=== PATIENT | female | born 1985 | race Caucasian/White ===

== ENCOUNTER 2016-06-05 08:40 | Emergency (ER) | payer OTHER ==
--- NOTE | 2016-06-05 09:22 | EDPHY ---
HPI/HX/ROS/PE/MDM Narrative: Chief complaint: Genital pain HPI: 31-year-old female presenting with 3 days of worsening perineal pain. Patient states she had unprotected sex on . She has also had some worsening vaginal discharge which is malodorous. Denies any lower abdominal pain. Patient is describing pain in her groin area it described as like she is being cut with many sharp razor blades. Denies any rash or bumps that she has noticed. Does not have a history of sexually transmitted disease in the past. Is G 1 P 0 status post elective termination of in the past. Has had some dysuria with burning of the skin when she urinates. No urgency or frequency. ROS: 10 point Review of Systems is negative except as noted in the HPI. Physical exam: Gen: Awake, Alert, No Distress HEENT: Nose: no rhinorrhea Eyes: PERRLA, EOMI Mouth: Moist mucosa Neck: Supple, no JVD Chest: nontender, lungs clear to auscultation Heart: S1, S2 normal, no murmur Abd: Soft, non-tender, no guarding, no adnexal tenderness, no uterine tenderness Genital: Diffuse mildly erythematous rash with vesicles around the enteritis with clear discharge, speculum exam deferred due to pain Back: no CVA tenderness, no midline tenderness Ext: no edema, non-tender Skin: no rash Neuro: CN II-XII intact, Sensation grossly intact, Strength 5/5 in bilateral upper and lower extremities ED Course: 31-year-old with symptoms and physical findings consistent with herpes genitalis. Herpes cultures been sent for confirmation. Will start her on acyclovir. Will also dose azithromycin and ceftriaxone to cover for GC and Chlamydia as well. Patient will be referred for follow-up with [facility]. Will send her home on oral pain medicine as well. - Data Points Laboratory Results: 06/05/16 09:20 Urine Color YELLOW Urine Appearance MODERATELY TURBID Urine pH 6.0 (5.0-7.5) Ur Specific El[place] 1.015 (1.002-1.030) Urine Protein 1+ H (NEGATIVE) Urine Ketones TRACE H (NEGATIVE) Urine Blood 1+ H (NEGATIVE) Urine Nitrate NEGATIVE (NEGATIVE) Urine Bilirubin NEGATIVE (NEGATIVE) Urine Urobilinogen NEGATIVE EU (0.2-1.0) Ur Leukocyte Esterase 3+ H (NEGATIVE) Urine Glucose NEGATIVE (NEGATIVE) Urine Test Pending C.trachomatis RNA (TMA) Pending N.gonorrhoeae RNA (TMA) Pending Medications Given: Discontinued Medications Ondansetron HCl (Zofran Odt) 4 mg PO EDNOW ONE Stop: 06/05/16 09:43 Last Admin: 06/05/16 09:43 Dose: 4 mg Oxycodone/Acetaminophen (Percocet 5/325) 2 tab PO EDNOW ONE Stop: 06/05/16 09:37 Last Admin: 06/05/16 09:46 Dose: 2 tab General Time Seen by Provider: 06/05/16 09:07 Initial Vital Signs: Initial Vital Signs Temperature (C) 36.6 C 06/05/16 08:45 Heart Rate 96 06/05/16 08:45 Respiratory Rate 18 06/05/16 08:45 Blood Pressure 114/84 H 06/05/16 08:45 O2 Sat (%) 97 06/05/16 08:45 O2 Delivery Mode Room Air Allergies/Adverse Reactions: No Known Allergies Allergy (Unverified 06/05/16 08:48) Home Medications: Medication Instructions Recorded Norethindrone-E.Estradiol-Iron 0 tab PO DAILY@1800 #0 04/11/16 [Microgestin Fe 1-20 Tablet] hydrOXYzine HCL 50 mg PO TID PRN #20 tab 04/11/16 Acyclovir [Zovirax 200 mg (*)] 200 mg PO 5XD #50 cap 06/05/16 Ziprasidone HCl [Geodon 40MG (*)] 60 mg PO PRN PRN 06/05/16 oxyCODONE/APAP 5/325 [Percocet 1 - 2 tab PO Q4H PRN #10 tab 06/05/16 5/325 (*)] Departure - Departure Disposition: Home, Routine, Self-Care Clinical Impression: Herpes genitalis in women Condition: Good Instructions: Genital Herpes Simplex (ED) Additional Instructions: You may take [place] for the pain. Take your full course of antiviral medications. You have been given antibiotics to treat possible gonorrhea and chlamydia as well. Follow up at the [facility] for further evaluation. Prescriptions: oxyCODONE/APAP 5/325 [Percocet 5/325 (*)] 1 - 2 tab PO Q4H PRN #10 tab PRN Reason: Pain, Severe Acyclovir [Zovirax 200 mg (*)] 200 mg PO 5XD #50 cap
[2016-06-05] MEDS ORDERED: OXYCODONE/APAP 5/325 TAB PO ONE (09:36)
[2016-06-05 09:39] LABS: COLOR YELLOW; LEUKOCYTE ESTERASE,URINE 3+ (NEGATIVE); NITRITE,URINE NEGATIVE (NEGATIVE)
[2016-06-05] MEDS ORDERED: ONDANSETRON DISINTEGRATING 4 MG TAB ONE (09:41)
[2016-06-05] MEDS ORDERED: ONDANSETRON DISINTEGRATING 4 MG TAB PO ONE (09:42)
[2016-06-05] MEDS ORDERED: AZITHROMYCIN 250 MG TAB PO ONE (09:50)
[2016-06-05] MEDS ORDERED: CEFTRIAXONE IM 350 MG/ML SYRINGE IM ONE ×2 (09:50→10:30)
[2016-06-05 10:09] LABS: BACTERIA 1+ /hpf (NONE SEEN); MUCUS TRACE /lpf (NONE-1+); RBC,URINE 15-25 /hpf (0-3); WBC,URINE 50-182 /hpf (0-3)
[2016-06-05 10:34] VITALS: BP 117/81; PULSE 72; RESP 17; TEMP 98.8; O2SAT 96
[2016-06-06 15:03] LABS: CHLAMYDIA AMPLIFICATION GENPRB NEGATIVE (NEGATIVE)
[2016-06-08 15:10] LABS: SPECIMEN SOURCE PERINEAL (())
== END 2016-06-05 10:34 | disposition home or self-care (01) ==
DX: A60.09 Herpesviral infection of other urogenital tract (principal)
CPT/HCPCS: 96372; 99284; J0696; 87529-90

== ENCOUNTER 2016-06-15 09:17 | Emergency (ER) | payer OTHER ==
--- NOTE | 2016-06-15 09:40 | EDPHY ---
General Narrative: CHIEF COMPLAINT: Right leg pain HISTORY OF PRESENT ILLNESS: one-week history of right hamstring and calf pain. This is gradual onset. Constant duration. Described as excruciating pain. No fevers or chills. No erythema or edema. Has been taking ibuprofen with minimal improvement. No discrepancy in the size of the right calf versus the left. No recent travel or surgery. No history of venous thrombolic event. No worse with dorsiflexion. Feels that it was worse when she does yoga but does improve with rest. No radiating pain. No chest pain or shortness of breath. No other associated complaints or modifying factors. REVIEW OF SYSTEMS: Ten systems reviewed and are negative unless otherwise noted in the HPI EXAMINATION General Appearance: Alert, no distress Head: normocephalic, atraumatic Eyes: Pupils equal and round, no conjunctival pallor or injection Neck: Normal inspection Respiratory: No dyspnea or retractions. No distress Cardiovascular: Pulses normal throughout With symmetric radial, DP and PT pulses. Gastrointestinal: No distention Neurological: A&O, sensory symmetric, strength symmetric Skin: Warm and dry, no rash . No erythema. Extremities: Tenderness to palpation of the hamstring and calf. No palpable cords. Negative Homans. No edema of the lower extremity. No erythema of the calf. Psychiatric: Mood and affect normal MDM: Right hamstring calf pain that are likely muscular strains. There is no history of or evidence of DVT on examination. The legs are very well- appearing without any erythema, edema, cords or pain with passive range of motion. We discussed discharge home with continued anti-inflammatories, ice and elevation. Recommend follow up with primary care physician this week. She is attempting to see her primary care clinic, [facility], this week. We did discuss return to the emergency department for any worsening pain, erythema of the leg, edema of the legs or pain with passive range of motion. Patient is comfortable with this plan and discharged home in stable condition ED Precautions: Worsening pain. Erythema, edema, cyanosis, pallor, paresthesia or anesthesia. SUPERVISION: This patient was independently evaluated without the aide of supervising physician. - History Smoking Status: Current every day smoker - Objective Vital Signs: Initial Vital Signs Temperature (C) 98.1 F 06/15/16 09:20 Heart Rate 102 H 06/15/16 09:20 Respiratory Rate 16 06/15/16 09:20 Blood Pressure 118/75 06/15/16 09:20 O2 Sat (%) 95 06/15/16 09:20 O2 Delivery Mode Room Air Allergies/Adverse Reactions: No Known Allergies Allergy (Unverified 06/05/16 08:48) Home Medications: Medication Instructions Recorded Norethindrone-E.Estradiol-Iron 0 tab PO DAILY@1800 #0 04/11/16 [Microgestin Fe 1-20 Tablet] hydrOXYzine HCL 50 mg PO TID PRN #20 tab 04/11/16 Acyclovir [Zovirax 200 mg (*)] 200 mg PO 5XD #50 cap 06/05/16 Ziprasidone HCl [Geodon 40MG (*)] 60 mg PO PRN PRN 06/05/16 oxyCODONE/APAP 5/325 [Percocet 1 - 2 tab PO Q4H PRN #10 tab 06/05/16 5/325 (*)] Departure - Departure Disposition: Home, Routine, Self-Care Clinical Impression: Strain of calf muscle Qualifiers: Qualifier Code: (S86.811A) Strain of other muscle(s) and tendon(s) at lower leg level, right leg, initial encounter Strain of hamstring muscle Qualifiers: Qualifier Code: (S76.311A) Strain of muscle, fascia and tendon of the posterior muscle group at thigh level, right thigh, initial encounter Condition: Good Instructions: Muscle Strain (ED) Additional Instructions: Follow-up with primary care physician for further care and possible physical therapy. Ibuprofen every 8 hours as needed , or Aleve every 8-12 hours as needed. Return to the ER for any redness, edema or discrepancy in size of the right calf versus left. Referrals: NONE *PRIMARY CARE P,. [Primary Care Provider] - As per Instructions Sin Garzon MD [Medical Doctor] - As per Instructions
[2016-06-15 09:49] VITALS: BP 112/94; PULSE 73; RESP 18; TEMP 98.8; O2SAT 96
== END 2016-06-15 09:50 | disposition home or self-care (01) ==
DX: S86.811A Strain of other muscle(s) and tendon(s) at lower leg level, right leg, initial encounter (principal); S76.311A Strain of muscle, fascia and tendon of the posterior muscle group at thigh level, right thigh, initial encounter; F17.200 Nicotine dependence, unspecified, uncomplicated; X58.XXXA Exposure to other specified factors, initial encounter; Y93.89 Activity, other specified

== ENCOUNTER 2016-08-05 11:43 | Emergency (ER) | payer OTHER ==
[2016-08-05 11:54] VITALS: BP 136/72; PULSE 77; RESP 18; TEMP 97.7; O2SAT 97
--- NOTE | 2016-08-05 12:04 | EDPHY ---
General Narrative: CHIEF COMPLAINT: right ankle pain, right extremity pain HISTORY OF PRESENT ILLNESS: note a several month history of right lower extremity pain. She is here today specifically for the pain or the ankle. This is primarily over the lateral malleolus. No trauma or injury. She has had pain in this area for months. at times the pain radiates from the hamstring down to the ankle. It is unpredictable and how does so. She has been in physical therapy for the leg for several weeks with some improvement. She has not yet had any imaging of the lower extremity. She has no redness or swelling. No chest pain or shortness of breath. No previous incidence of venous thrombolic event risk factors for such. Pain is mild to moderate at times, in moderate to severe at others. No other associated complaints or modifying factors. REVIEW OF SYSTEMS: Ten systems reviewed and are negative unless otherwise noted in the HPI EXAMINATION General Appearance: Alert, no distress Head: normocephalic, atraumatic Cardiovascular: Pulses normal throughout. Symmetric DP and PT pulses at 2+ .Brisk cap refill Neurological: A&O, sensory symmetric, strength symmetric At 5/5. No footdrop. Skin: Warm and dry, no rash Extremities: Tenderness to palpation over the lateral malleolus of the right lower extremity. Range of motion is fully intact and symmetric to the left. No palpable cords. No pain with passive dorsiflexion. No evidence of DVT. Psychiatric: Mood and affect normal DIFFERENTIAL DIAGNOSES: Including but not limited to Peripheral neuropathy, arthritis, lumbar radiculopathy, chronic pain MDM: 12:00 p.m. right ankle pain that radiates up and down the extremity. She occasionally have some sensory changes but not at this time. She has no weakness. There is no outward signs of trauma. She is neurovascular intact with symmetric strength and sensory examination. There is tenderness to palpation in multiple of the right lower extremity. This comes and goes and she has difficulty describing this. I have ordered an ankle x-ray she has not ever had 1 and she does have pain over the lateral malleolus. 12:40 p.m. lower extremity pain with normal x-ray of the ankle. There is no evidence of DVT by history or examination. She has symmetric and range of motion, sensory and strength. She will be discharged home with a trial of Neurontin in case this is peripheral neuropathy, and a short course of pain medication. She is comfortable this plan. Additionally, I have referred her to Orthopedics for definitive care. She is comfortable this plan as well. She is discharged home in stable condition, neurovascular and intact, ambulating without assistance. ED Precautions: Worsening pain. Erythema, edema, cyanosis, pallor, paresthesia or anesthesia. SUPERVISION: This patient was independently evaluated without the aide of supervising physician. - History Smoking Status: Current every day smoker - Objective Vital Signs: Initial Vital Signs Temperature (C) 97.7 F 08/05/16 11:51 Heart Rate 77 08/05/16 11:51 Respiratory Rate 18 08/05/16 11:51 Blood Pressure 136/72 H 08/05/16 11:51 O2 Sat (%) 97 08/05/16 11:51 O2 Delivery Mode Room Air Allergies/Adverse Reactions: No Known Allergies Allergy (Verified 08/05/16 11:50) Home Medications: Medication Instructions Recorded Norethindrone-E.Estradiol-Iron 0 tab PO DAILY@1800 #0 04/11/16 [Microgestin Fe 1-20 Tablet] hydrOXYzine HCL 50 mg PO TID PRN #20 tab 04/11/16 Acyclovir [Zovirax 200 mg (*)] 200 mg PO 5XD #50 cap 06/05/16 Ziprasidone HCl [Geodon 40MG (*)] 60 mg PO PRN PRN 06/05/16 Gabapentin [Neurontin 300 MG (*)] 300 mg PO TID PRN #15 cap 08/05/16 Hydrocodone/APAP 5/325 [Cromwell 1 - 2 tab PO Q4H PRN #10 tab 08/05/16 5/325 (*)] Departure - Departure Disposition: Home, Routine, Self-Care Clinical Impression: Lower extremity pain, right Condition: Good Instructions: Leg Pain (ED), Peripheral Neuropathy (ED) Additional Instructions: Follow-up with Orthopedics for definitive care. Return to the ER for weakness of the leg, low back pain, saddle anesthesia or incontinence of bowel or bladder Referrals: Autumn Delgado, [place] [Primary Care Provider] - As per Instructions Henna Cordero MD [Medical Doctor] - As per Instructions Prescriptions: Gabapentin [Neurontin 300 MG (*)] 300 mg PO TID PRN #15 cap PRN Reason: Pain, Mild Hydrocodone/APAP 5/325 [Cromwell 5/325 (*)] 1 - 2 tab PO Q4H PRN #10 tab PRN Reason: Pain, Moderate
== END 2016-08-05 12:58 | disposition home or self-care (01) ==
DX: M79.661 Pain in right lower leg (principal); F17.200 Nicotine dependence, unspecified, uncomplicated

== ENCOUNTER 2016-08-15 17:13 | Emergency (ER) | payer OTHER ==
[2016-08-15 17:26] VITALS: BP 155/100; PULSE 78; RESP 16; TEMP 98.4; O2SAT 96
--- NOTE | 2016-08-15 17:40 | EDPHY ---
H & P Stated Complaint: ATRAUMATIC RLE PAIN Time Seen by Provider: 08/15/16 17:20 HPI/ROS: HPI: 31-year-old female presents to emergency department with chief concern worsening right lower leg and calf pain that onset 3 months ago atraumatically. Pain is intermittent in severity, 4/10 aching presently, and worse with movement. She does not recall inciting event or trauma. Pain is worse towards the ankle and at time extends into the distal hamstring. She denies fever, chills, dizziness, shortness of breath, chest pain, nausea, vomiting, swelling, discharge, erythema. Has been in physical therapy for leg pain with minimal improvement per patient. Has not seen primary care for this leg pain. No personal history of blood clots however per she and her mother the family history is unknown. Was on an airplane and car trip last week to [place]. Past medical history notable for polysubstance abuse, anxiety, multiple suicide attempts, depression, paranoid schizophrenia, cutting. Has an appointment with an orthopedist for evaluation of her leg pain tomorrow. ROS:10 point review of systems is negative other than as stated in HPI Source: Patient Exam Limitations: No limitations - Personal History Current Tetanus/Diphtheria Vaccine: Yes Current Tetanus Diphtheria and Acellular Pertussis (TDAP): Yes Tetanus Vaccine Date: 2014 - Medical/Surgical History Hx Asthma: No Hx Chronic Respiratory Disease: No Hx Diabetes: No Hx Cardiac Disease: No Hx Renal Disease: No Hx Cirrhosis: No Hx Alcoholism: No Hx HIV/AIDS: No Hx Splenectomy or Spleen Trauma: No Other PMH: multiple suicide attempts, polysub abuse,depression,paranoid delusions schizophrenia,. cutter - Family History Significant Family History: No pertinent family hx - Social History Smoking Status: Current every day smoker Alcohol Use: Rarely Drug Use: Other (History polysubstance) Additional Social History: Lives with her mother - Physical Exam Exam: Vital signs reviewed by me General: Awake, alert, calm, cooperative. No acute distress. Head: Normalocephalic. Atraumatic. EENT: PERRLA. EOMI. No pallor or injection. Anicteric. No nystagmus. No injection. TMs intact bilaterally with normal landmarks. No rhinnorhea, nasal passages clear. Oropharynx without redness, exudates, or lesions. Tonsils 2+ bilaterally, no exudates. Neck: Supple, nontender. No lymphadenopathy. Full range of motion. No meningismus. Respiratory: Breathing unlabored. Breath sounds equal bilaterally and clear to auscultation. No adventitious sounds. CV: Chest nontender, atraumatic. Heart rate regular. No murmur, distal pulses 2+ bilaterally. Brisk cap refill all extremities. Neuro: Alert. Oriented x 3. Speech clear. Nonfocal cranial nerves throughout. Sensation intact all extremities. Skin: Skin warm, dry, intact. No rashes, abrasions, or lacerations. No erythema or discharge. Skin turgor normal. Extremities: Full range of motion in all 4 extremities. Strength 5+ all extremities. Right calf 36 cm in circumference, left calf 35 cm in circumference. Negative Homans sign bilaterally however she does have tenderness to the lateral aspect of the right calf. Constitutional: Initial Vital Signs Temperature (C) 36.9 C 08/15/16 17:25 Heart Rate 78 08/15/16 17:25 Respiratory Rate 16 08/15/16 17:25 Blood Pressure 155/100 H 08/15/16 17:25 O2 Sat (%) 96 08/15/16 17:25 O2 Delivery Mode Room Air Allergies/Adverse Reactions: No Known Allergies Allergy (Verified 08/15/16 17:25) Home Medications: Medication Instructions Recorded Norethindrone-E.Estradiol-Iron 0 tab PO DAILY@1800 #0 04/11/16 [Microgestin Fe 1-20 Tablet] hydrOXYzine HCL 50 mg PO TID PRN #20 tab 04/11/16 Acyclovir [Zovirax 200 mg (*)] 200 mg PO 5XD #50 cap 06/05/16 Ziprasidone HCl [Geodon 40MG (*)] 60 mg PO PRN PRN 06/05/16 Gabapentin [Neurontin 300 MG (*)] 300 mg PO TID PRN #15 cap 08/05/16 Hydrocodone/APAP 5/325 [Mikado 1 - 2 tab PO Q4H PRN #10 tab 08/05/16 5/325 (*)] Hydrocodone/APAP 5/325 [Mikado 1 - 2 tab PO Q6H PRN #8 tab 08/15/16 5/325 (*)] Medical Decision Making - Diagnostics Imaging: Ultrasound and Venous Duplex Doppler Study of Right Lower Extremity Indication: Right Calf Pain, increased circumference of the right calf, R/O DVT History: Pain x3 months Technique: High frequency transducer was used for imaging and Doppler study of the veins of the lower extremity. Pulsed Doppler and color Doppler were utilized, along with various maneuvers to assess flow in the veins. Findings: The deep veins of the lower extremity are normally compressible between the groin and the upper calf and have normal Doppler waveforms within them. No venous thrombosis is identified. No superficial phlebitis or Prieto cyst is identified. Impression: No evidence of deep vein thrombosis in the right lower extremity. Results called to Jackie Kiser at 6:34 PM Dictated By: Josh Pena MD ED Course/Re-evaluation: 31-year-old female presents to emergency room for ongoing right leg pain. Vitals are stable. She has not followed up with primary care although her pain has been ongoing for 3 months. As the circumference of her right calf is greater than left and she has traveled recently the pain has worsened recently, we will do a an ultrasound to rule out DVT. She has follow-up tomorrow with orthopedist, and I have counseled she and her mother regarding the need for follow-up with primary care given the symptoms have been ongoing for 3 months that have not improved with physical therapy. Right lower extremity ultrasound negative for DVT. Patient's pain improved after 2 Mikado. She has follow up with orthopedist tomorrow. I have encouraged her to follow up also with primary care. She agrees to do so. Differential Diagnosis: Differential diagnosis includes but is not limited to in no particular order musculoskeletal strain, muscle tear, DVT, fibromyalgia, chronic pain syndrome - Data Points Medications Given: Discontinued Medications Hydrocodone Bitart/Acetaminophen (Mikado 5/325) 2 tab PO EDNOW ONE Stop: 08/15/16 17:56 Last Admin: 08/15/16 18:02 Dose: 2 tab Departure - Departure Disposition: Home, Routine, Self-Care Clinical Impression: Leg pain, right Condition: Good Instructions: Leg Pain (ED) Additional Instructions: Plan: Continue using 400 mg ibuprofen every 6 hours, for more severe pain may use 1-2 Mikado every 6 hours as needed--Never drink or drive while taking this medication. This medication impairs decision making capacity so do not work or sign important documents while taking. This medication its constipating so drink plenty of fluids and consider an [id number] stool softener such as docusate sodium (Colace) while taking this medication. This medication has addictive properties. You should use the least amount for the shortest amount of time. [facility] ED and Urgent Care do not refill narcotic pain medication prescriptions. This is a hospital policy. You will need to follow up as indicated for recheck for further narcotic refills. Follow up with orthopedist as planned tomorrow Imperative that you follow up with primary care this week for recheck without fail--When you call to schedule appointment, please let the office know you are an "ER follow up" appointment" Referrals: Autumn Delgado PAC [Primary Care Provider] - As per Instructions Prescriptions: Hydrocodone/APAP 5/325 [Mikado 5/325 (*)] 1 - 2 tab PO Q6H PRN #8 tab PRN Reason: severe pain
[2016-08-15] MEDS ORDERED: HYDROCODONE/APAP 5/325 TAB PO ONE (17:55)
== END 2016-08-15 18:58 | disposition home or self-care (01) ==
DX: M79.604 Pain in right leg (principal); F17.200 Nicotine dependence, unspecified, uncomplicated

== ENCOUNTER 2016-08-22 08:04 | Emergency (ER) | payer OTHER ==
[2016-08-22 08:09] VITALS: BP 130/91; PULSE 78; RESP 16; TEMP 97.7; O2SAT 100
--- NOTE | 2016-08-22 08:39 | EDPHY ---
H & P Time Seen by Provider: 08/22/16 08:28 HPI/ROS: CHIEF COMPLAINT: Rash on legs HISTORY OF PRESENT ILLNESS: Patient presents with a rash on her left lateral calf, right lateral calf and right thigh which she states has been there for about 1 month. She has had chronic lower leg pain for about 3-4 months and saw Morena Cordero from Orthopedics last week he told the patient that the she thought it was likely her mental illness relating to her leg pain. The patient states that the rash when 1st started was itchy but now it is not. She comes in because she was concerned because a friend of hers had a rash which she did not immediately get evaluated and he ended up with permanent scarring. Denies associated trouble breathing or facial swelling. No fevers or chills. No new exposures to any thing. REVIEW OF SYSTEMS: Eye: no change in vision ENT: no sore throat Cardiac: no chest pain or syncope Pulmonary: Cough at night but no shortness of breath and no hemoptysis Abdomen: 2 days of diarrhea and a 15 lb weight loss over the last month but no abdominal pain and no vomiting. Musculoskeletal: no back pain Skin: HPI Neuro: Intermittent headaches times months unchanged Constitutional: no fever : no urinary symptoms A comprehensive 10 point review of systems is otherwise negative aside from elements mentioned in the history of present illness. PAST MEDICAL HISTORY: Includes history of substance abuse depression, schizophrenia noted in nurse's notes but discharge summary from Psychiatry dated 04/08/2016 notes borderline personality disorder and not schizophrenia. Social history: Tobacco smoker General Appearance: Alert and conversant, cooperative. Eyes: No scleral icterus. ENT, Mouth: Normal mucous membranes. Respiratory: Normal respiratory effort, breath sounds equal, lungs are clear to auscultation. Cardiovascular: Regular rate and rhythm. Gastrointestinal: Abdomen is soft and non tender. Neurological: Alert and oriented x3. Normally conversant. Face symmetric, normal movement and sensation in all extremities. Skin: Patient is very slight papular erythema over lateral surface of both legs with each area 1 mm or last except for 2 areas that are approximately 2 mm in the left lateral thigh. No vesicles, no lymphangitis, not warm to the touch and not tender to palpation. No fluctuance. Musculoskeletal: No peripheral edema and no joint swelling. Psychiatric: Not agitated. Emergency Department course/MDM: I reassured the patient that her rash does not appear to be an emergent condition. I do not think it represents cellulitis or urticaria. Does not appear petechial or purpura. Possibility of contact dermatitis is considered. She is reassured and will follow up with her primary care doctor. She does not have mucous membrane involvement and I think it is unlikely related to 1 of her medications. Smoking Status: Current every day smoker Constitutional: Initial Vital Signs Temperature (C) 36.5 C 08/22/16 08:06 Heart Rate 78 08/22/16 08:06 Respiratory Rate 16 08/22/16 08:06 Blood Pressure 130/91 H 08/22/16 08:06 O2 Sat (%) 100 08/22/16 08:06 O2 Delivery Mode Room Air Allergies/Adverse Reactions: No Known Allergies Allergy (Verified 08/22/16 08:05) Home Medications: Medication Instructions Recorded hydrOXYzine HCL 50 mg PO TID PRN #20 tab 04/11/16 Acyclovir [Zovirax 200 mg (*)] 200 mg PO 5XD #50 cap 06/05/16 Ziprasidone HCl [Geodon 40MG (*)] 60 mg PO PRN PRN 06/05/16 Gabapentin [Neurontin 300 MG (*)] 300 mg PO TID PRN #15 cap 08/05/16 MDM/Departure - Depart Disposition: Home, Routine, Self-Care Clinical Impression: Rash Condition: Good Instructions: Acute Rash (ED) Referrals: Autumn Delgado, PAC [Primary Care Provider] - As per Instructions
== END 2016-08-22 08:41 | disposition home or self-care (01) ==
DX: R21 Rash and other nonspecific skin eruption (principal); F17.200 Nicotine dependence, unspecified, uncomplicated

== ENCOUNTER 2016-10-07 05:40 | Emergency (ER) | payer OTHER, MEDICAID ==
--- NOTE | 2016-10-07 06:14 | EDPHY ---
H & P Stated Complaint: SI, pt says she doesn't feel right, but can't say why, cocaine use this am Source: Patient Exam Limitations: No limitations - Personal History Tetanus Vaccine Date: 2014 - Medical/Surgical History Hx Asthma: No Hx Chronic Respiratory Disease: No Hx Diabetes: No Hx Cardiac Disease: No Hx Renal Disease: No Hx Cirrhosis: No Hx Alcoholism: No Hx HIV/AIDS: No Hx Splenectomy or Spleen Trauma: No Other PMH: multiple suicide attempts, polysub abuse,depression,paranoid delusions schizophrenia,. cutter - Social History Smoking Status: Current every day smoker Time Seen by Provider: 10/07/16 05:50 HPI/ROS: HPI The patient presents with suicidal ideation without plan which has been present for years she says, however worse over the last 1 day. She used cocaine last night and this may have made her suicidality worse she thinks. 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 She quit her job 1 week ago because of this. She says it is difficult to explain how she is feeling now but she does not feel right. She has prior history of suicide attempts. She says she is taking her medications and is seeing her psychiatrist. REVIEW OF SYSTEMS Constitutional: No fever, no chills. Eyes: No discharge. ENT: No sore throat. Cardiovascular: No chest pain, no palpitations. Respiratory: No cough, no shortness of breath. Gastrointestinal: No abdominal pain, no vomiting. Genitourinary: No hematuria. Musculoskeletal: No back pain. Skin: No rashes. Neurological: No headache. PMHx: Depression, schizophrenia by report Soc Hx: Cocaine use, alcohol use, currently unemployed, lives with her mother in [place] PHYSICAL General Appearance: Alert, no distress Eyes: Pupils equal and round no pallor or injection ENT, Mouth: Mucous membranes moist Respiratory: There are no retractions, lungs are clear to auscultation Cardiovascular: Regular rate and rhythm Gastrointestinal: Abdomen is soft and non-tender, no masses, bowel sounds normal Neurological: A&O, moves all extremities Skin: Warm and dry, no rashes Musculoskeletal: Neck is supple non tender Extremities: symmetrical, full range of motion Psychiatric: Patient is oriented X 3, there is no agitation (Riguzzi,Bessie) Constitutional: Initial Vital Signs Temperature (C) 36.8 C 10/07/16 05:45 Heart Rate 86 10/07/16 05:45 Respiratory Rate 18 10/07/16 05:45 Blood Pressure 131/85 H 10/07/16 05:45 O2 Sat (%) 96 10/07/16 05:45 O2 Delivery Mode Room Air Allergies/Adverse Reactions: No Known Allergies Allergy (Verified 10/07/16 05:47) Home Medications: Medication Instructions Recorded hydrOXYzine HCL 50 mg PO TID PRN #20 tab 04/11/16 Acyclovir [Zovirax 200 mg (*)] 200 mg PO 5XD #50 cap 06/05/16 Ziprasidone HCl [Geodon 40MG (*)] 60 mg PO PRN PRN 06/05/16 Gabapentin [Neurontin 300 MG (*)] 300 mg PO TID PRN #15 cap 08/05/16 Medical Decision Making ED Course/Re-evaluation: In the emergency room, the patient was monitored. She was initially in room 3 and when the security systems integrator went to move her to 1 of the psychiatric bed she noticed that her face was red and she was not responding. He found a elastic tourniquet around her neck. She was not hypoxic, she does not have any neck swelling or mass and she was last seen 3 minutes before he entered the room. I then placed her on an M1 hold. She became agitated, basketing her head against the gurney. She initially received Zyprexa and Ativan, however then required 4 point restraints so got Versed 5 mg IM. Basic labs are pending. At 7:00 a.m., the case is signed out to Dr. Franco pending psychiatric evaluation. (Bessie Green) Differential Diagnosis: This is a 31-year-old female with prior psychiatric disease who presents with suicidal ideation after using cocaine. She also is reporting paranoid delusions. Differential diagnosis includes psychosis due to decompensated schizophrenia, suicidal ideation due to depression, polysubstance abuse. Plan for basic labs and mental health evaluation. (Bessie Green) Other Provider: Care assumed at 1500 from [place] with psych evaluation in progress. At 6:50 p.m. patient had psychiatric evaluation and no longer meets criteria for mental health hold. Per vaccine manager and Dr. Angelica Qureshi psychiatrist recommendation is to vacate the hold and discharge her. Patient and mother are comfortable with that. (Faustino Rivera) - Data Points Laboratory Results: Laboratory Results 10/07/16 06:05 10/07/16 06:05 Medications Given: Discontinued Medications Lorazepam (Ativan) 1 mg PO EDNOW ONE Stop: 10/07/16 13:29 Last Admin: 10/07/16 16:22 Dose: 1 mg Midazolam HCl (Versed) 5 mg IM ONCE ONE Stop: 10/07/16 07:01 Last Admin: 10/07/16 07:00 Dose: 5 mg Olanzapine (Zyprexa Im Injection) 10 mg IM EDNOW ONE Stop: 10/07/16 06:46 Last Admin: 10/07/16 07:55 Dose: 10 mg Ziprasidone (Geodon) 60 mg PO ONCE ONE Stop: 10/07/16 16:31 Last Admin: 10/07/16 16:22 Dose: 60 mg Departure - Departure Disposition: Home, Routine, Self-Care Clinical Impression: Acute psychosis, Cocaine use Condition: Fair Instructions: Cocaine Abuse (ED) Referrals: Autumn Delgado, PAC [Primary Care Provider] - As per Instructions
[2016-10-07] MEDS ORDERED: OLANZapine 10 MG/2 ML VIAL IM ONE (06:45)
[2016-10-07] MEDS ORDERED: OLANZapine DISINTEGR 10 MG TAB ONE (06:46)
[2016-10-07 06:49] LABS: PHENCYCLIDINE URINE BCH < 6 ng/ml (NEGATIVE); PHENCYCLIDINE URINE BCH NEGATIVE (NEGATIVE)
[2016-10-07] MEDS ORDERED: LORazepam 1 MG TAB ONE ×2 (06:49→16:19)
[2016-10-07] MEDS ORDERED: MIDAZOLAM 2 MG/2 ML VIAL ONE (06:55)
[2016-10-07] MEDS ORDERED: MIDAZOLAM 2 MG/2 ML VIAL IM ONE (07:00)
[2016-10-07 07:32] LABS: TETRAHYDROCANNABINOL URINE 288 ng/mL (NEGATIVE)
[2016-10-07 08:28] LABS: % IMMATURE GRANULYOCYTES 0.3 % (0.0-1.1); ABSOLUTE IMMATURE GRANULOCYTES 0.04 10^3/uL (0.00-0.10); ADD DIFF? NO; ADD MORPH? NO; ADD SCAN? NO; ATYPICAL LYMPHOCYTE FLAG 10 (0-99); FRAGMENT RBC FLAG 0 (0-99); HEMATOCRIT 38.8 % (38.0-47.0); HEMOGLOBIN 13.1 g/dL (12.6-16.3); LEFT SHIFT FLG 0 (0-99); LIPEMIA HEMOLYSIS FLAG 90 (0-99); MEAN CELL HEMOGLOBIN 31.4 pg (27.9-34.1); MEAN CELL HEMOGLOBIN CONCENTR. 33.8 g/dL (32.4-36.7); MEAN PLATELET VOLUME 9.8 fL (8.7-11.7); PLATELET CLUMPS FLAG 0 (0-99); PLATELET COUNT 271 10^3/uL (150-400); RED BLOOD CELL COUNT 4.17 10^6/uL (4.18-5.33); RED CELL DISTRIBUTION WIDTH 13.4 % (11.5-15.2)
[2016-10-07 08:34] LABS: ALANINE AMINOTRANSFERASE 30 IU/L (9-52); ALBUMIN 4.4 g/dL (3.5-5.0); ALKALINE PHOSPHATASE 44 IU/L (38-126); ANION GAP 10 mEq/L (8-16); ASPARTATE AMINOTRANSFERASE 29 IU/L (14-46); BILIRUBIN,TOTAL 0.7 mg/dL (0.1-1.4); CALCIUM 9.5 mg/dL (8.5-10.4); CARBON DIOXIDE 25 mEq/l (22-31); CHLORIDE 105 mEq/L (97-110); CREATININE 0.7 mg/dL (0.6-1.0); ETHANOL SERUM < 10 mg/dL (0-10); GLOMERULAR FILTRATION RATE > 60; GLUCOSE 108 mg/dL (70-100); POTASSIUM 3.8 mEq/L (3.5-5.2); SODIUM 140 mEq/L (134-144); TOTAL PROTEIN 6.8 g/dL (6.3-8.2)
[2016-10-07] MEDS ORDERED: LORazepam 1 MG TAB PO ONE (13:28)
[2016-10-07 16:03] VITALS: RESP 16
[2016-10-07] MEDS ORDERED: ZIPRASIDONE HCL 40 MG CAP PO ONE (16:11)
[2016-10-07] MEDS ORDERED: ZIPRASIDONE HCL 20 MG CAP PO ONE (16:30)
[2016-10-07 19:05] VITALS: BP 127/70; PULSE 95; TEMP 98.1; O2SAT 98
== END 2016-10-07 19:11 | disposition home or self-care (01) ==
LOC: EDUNIT#
DX: F23 Brief psychotic disorder (principal); F14.90 Cocaine use, unspecified, uncomplicated; F17.200 Nicotine dependence, unspecified, uncomplicated
CPT/HCPCS: 96372; 99284; J2250; 80307; G0480

== ENCOUNTER 2016-12-11 20:14 | Emergency (ER) | payer OTHER, MEDICAID ==
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
[2016-12-11] MEDS ORDERED: OLANZapine 10 MG/2 ML VIAL IM ONE ×3 (20:28→22:40)
[2016-12-11 20:49] LABS: % IMMATURE GRANULYOCYTES 0.3 % (0.0-1.1); ABSOLUTE IMMATURE GRANULOCYTES 0.02 10^3/uL (0.00-0.10); ADD DIFF? NO; ADD MORPH? NO; ADD SCAN? NO; ATYPICAL LYMPHOCYTE FLAG 20 (0-99); FRAGMENT RBC FLAG 0 (0-99); HEMATOCRIT 36.2 % (38.0-47.0); HEMOGLOBIN 12.8 g/dL (12.6-16.3); LEFT SHIFT FLG 0 (0-99); LIPEMIA HEMOLYSIS FLAG 90 (0-99); MEAN CELL HEMOGLOBIN 33.6 pg (27.9-34.1); MEAN CELL HEMOGLOBIN CONCENTR. 35.4 g/dL (32.4-36.7); MEAN PLATELET VOLUME 9.1 fL (8.7-11.7); PLATELET CLUMPS FLAG 0 (0-99); PLATELET COUNT 234 10^3/uL (150-400); RED BLOOD CELL COUNT 3.81 10^6/uL (4.18-5.33); RED CELL DISTRIBUTION WIDTH 13.5 % (11.5-15.2)
[2016-12-11 21:09] LABS: ANION GAP 13 mEq/L (8-16); CALCIUM 9.1 mg/dL (8.5-10.4); CARBON DIOXIDE 21 mEq/l (22-31); CHLORIDE 112 mEq/L (97-110); CREATININE 0.7 mg/dL (0.6-1.0); ETHANOL SERUM 196 mg/dL (0-10); GLOMERULAR FILTRATION RATE > 60; GLUCOSE 90 mg/dL (70-100); POTASSIUM 3.9 mEq/L (3.5-5.2); SALICYLATE < 1.0 mg/dL (2.0-20.0); SODIUM 146 mEq/L (134-144)
[2016-12-11] MEDS ORDERED: LORazepam 0.5 MG TAB ONE (21:36)
[2016-12-11] MEDS ORDERED: LORazepam 0.5 MG TAB PO ONE (21:39)
[2016-12-11] MEDS ORDERED: ACETAMINOPHEN 500 MG TAB ONE (22:27)
[2016-12-12] MEDS ORDERED: ACETAMINOPHEN 500 MG TAB PO ONE ×2 (00:30→15:05)
[2016-12-12] MEDS ORDERED: IBUPROFEN 600 MG TAB PO ONE ×4 (02:48→21:28)
[2016-12-12] MEDS ORDERED: OLANZapine 5 MG TAB ONE ×2 (02:48→21:36)
[2016-12-12] MEDS ORDERED: OLANZapine 10 MG TAB PO ONE ×2 (03:05→21:35)
[2016-12-12] MEDS ORDERED: LORazepam 2 MG/ML INJ ONE (03:08)
[2016-12-12] MEDS ORDERED: LORazepam 2 MG/ML INJ IM ONE (03:15)
[2016-12-12] MEDS ORDERED: LORazepam 1 MG TAB PO ONE (18:40)
[2016-12-13] MEDS ORDERED: ACETAMINOPHEN 500 MG TAB PO ONE (10:19)
[2016-12-13] MEDS ORDERED: ZIPRASIDONE HCL 20 MG CAP PO SCH (10:28)
[2016-12-13 15:42] VITALS: BP 127/80; PULSE 103; RESP 16; TEMP 97.5; O2SAT 98
[2016-12-13] MEDS ORDERED: IBUPROFEN 600 MG TAB PO ONE (15:42)
== END 2016-12-13 17:28 ==
LOC: EDUNIT#
DX: F23 Brief psychotic disorder (principal); F17.200 Nicotine dependence, unspecified, uncomplicated
CPT/HCPCS: 73630; 96372; 99285; J2060; 80305; G0480

== ENCOUNTER 2017-06-01 23:43 | Emergency (ER) | payer OTHER, MEDICAID ==
--- NOTE | 2017-06-01 23:47 | EDPHY ---
H & P Source: Patient, Police, EMS - Personal History Tetanus Vaccine Date: 2014 - Medical/Surgical History Hx Asthma: No Hx Chronic Respiratory Disease: No Hx Diabetes: No Hx Cardiac Disease: No Hx Renal Disease: No Hx Cirrhosis: No Hx Alcoholism: No Hx HIV/AIDS: No Hx Splenectomy or Spleen Trauma: No Other PMH: multiple suicide attempts, polysub abuse,depression,paranoid delusions schizophrenia,. cutter - Social History Smoking Status: Current every day smoker HPI/ROS: HPI CHIEF COMPLAINT: M1 hold by [facility], suicidal ideation, acute psychosis HISTORY OF PRESENT ILLNESS: This patient 32-year-old female, well-known to the emergency room history of schizophrenia, acute psychosis with suicidal ideation , presents to the emergency room on M1 hold by [place] [employer], after the make contact with her she was climbing on a shingle roof to get away from people that her chasing her. She is paranoid. She reports that somebody is after her , a serial killer. She presents emergency room and and appears paranoid. She is asking for Ativan. Past Medical History: Polysubstance abuse, paranoia, previous suicide attempts , psychosis, schizophrenia, self cutter Past Surgical History: No recent surgery Social History: Polysubstance abuse. Family History: Noncontributory ROS REVIEW OF SYSTEMS: A comprehensive 10 point review of systems is otherwise negative aside from elements mentioned in the history of present illness. Exam Constitutional acutely psychotic, pressured speech, agitated triage nursing summary reviewed, vital signs reviewed, awake/alert. Eyes normal conjunctivae and sclera, EOMI, PERRLA. HENT normal inspection, atraumatic, moist mucus membranes, no epistaxis, neck supple/ no meningismus, no raccoon eyes. Respiratory clear to auscultation bilaterally, normal breath sounds, no respiratory distress, no wheezing. Cardiovascular rate normal, regular rhythm, no murmur, no edema, distal pulses normal. Gastrointestinal soft, non-tender, no rebound, no guarding, normal bowel sounds, no distension, no pulsatile mass. Genitourinary no CVA tenderness. Musculoskeletal no midline vertebral tenderness, full range of motion, no calf swelling, no tenderness of extremities, no meningismus, good pulses, neurovascularly intact. Skin multiple small abrasions to the bottom of both feet, and additionally an abrasion rather large to right lower abdomen and no tenderness to her abdomen. Neurologic awake, alert and oriented x 3, AAOx3, moves all 4 extremities equally, motor intact, sensory intact, CN II-XII intact, normal cerebellar, normal vision, normal speech. Psychiatric acutely psychotic, agitated, pressured speech, rambling Heme/Lymph/Immune no lymphadenopathy. Differential Diagnosis: Includes but is not limited to in a particular order schizophrenia, acute psychosis, suicidal ideation, mood disorder, polysubstance abuse Medical Decision Making: Plan for this patient IV establishment with blood draw , for medical clearance, 10 mg p.o. Zyprexa, 1 mg p.o. Ativan. Re-evaluation: 1208: Patient is escalating. Verbally argumentative and aggressive with staff and screaming at the top of her lungs in the emergency room. She is up out of her bed walking around her ER room aggressively. I have ordered her 20 mg IM Geodon for sedation for patient's safety as well as staff safety. 0113: Re-evaluation at this time patient is sleeping after 20 mg IM Geodon 50 mg IM Benadryl. 0616: Patient has been sleeping after medications. Patient noted positive for cocaine. She is medically cleared and needs mental evaluation. Patient has been signed over to Dr. Trammell at 7 Am Shift Change. (Edwin Livingston ) Constitutional: Initial Vital Signs Temperature (C) 36.4 C 06/01/17 23:58 Heart Rate 97 06/01/17 23:58 Respiratory Rate 20 06/01/17 23:58 Blood Pressure 149/106 H 06/01/17 23:58 O2 Sat (%) 95 06/01/17 23:58 O2 Delivery Mode Room Air Allergies/Adverse Reactions: No Known Allergies Allergy (Verified 10/07/16 05:47) Home Medications: Medication Instructions Recorded hydrOXYzine HCL 50 mg PO TID PRN #20 tab 04/11/16 Acyclovir [Zovirax 200 mg (*)] 200 mg PO 5XD #50 cap 06/05/16 Ziprasidone HCl [Geodon 40MG (*)] 60 mg PO PRN PRN 06/05/16 Gabapentin [Neurontin 300 MG (*)] 300 mg PO TID PRN #15 cap 08/05/16 Medical Decision Making ED Course/Re-evaluation: 1:40 p.m.-this patient was seen by mental health and felt appropriate for inpatient disposition. Ativan 1 mg orally given for agitation. 3pm--signed over to Dr. Franco at shift change. (Deb Trammell) - Data Points Laboratory Results: Laboratory Results 06/02/17 00:57 06/02/17 00:57 06/02/17 03:46 Urine Opiates Screen NEGATIVE (NEGATIVE) Urine Barbiturates NEGATIVE (NEGATIVE) Ur Phencyclidine Scrn NEGATIVE (NEGATIVE) Ur Amphetamine Screen NEGATIVE (NEGATIVE) U Benzodiazepines Scrn NEGATIVE (NEGATIVE) Urine Cocaine Screen NON-NEGATIVE H (NEGATIVE) U Marijuana (THC) Screen NEGATIVE (NEGATIVE) Medications Given: Discontinued Medications Diphenhydramine HCl (Benadryl Injection) 50 mg IM EDNOW ONE Stop: 06/02/17 00:27 Last Admin: 06/02/17 00:33 Dose: 50 mg Ibuprofen (Motrin) 800 mg PO EDNOW ONE Stop: 06/02/17 03:49 Last Admin: 06/02/17 03:56 Dose: 800 mg Lorazepam (Ativan) 1 mg PO ONCE ONE Stop: 06/01/17 23:58 Last Admin: 06/02/17 01:12 Dose: Not Given Lorazepam (Ativan) 1 mg PO EDNOW ONE Stop: 06/02/17 13:40 Last Admin: 06/02/17 14:13 Dose: 1 mg Midazolam HCl (Versed) 5 mg IM EDNOW ONE Stop: 06/02/17 00:30 Last Admin: 06/02/17 01:49 Dose: Not Given Olanzapine (Olanzapine) 10 mg PO ONCE ONE Stop: 06/02/17 00:01 Last Admin: 06/02/17 01:13 Dose: Not Given Olanzapine (Zyprexa Zydis) 10 mg PO EDNOW ONE Stop: 06/02/17 03:56 Last Admin: 06/02/17 03:56 Dose: 10 mg Ziprasidone (Geodon) 20 mg IM ONCE ONE Stop: 06/02/17 00:09 Last Admin: 06/02/17 00:16 Dose: 20 mg Departure - Departure Clinical Impression: Acute psychosis Condition: Fair Referrals: Patient,NotPresent [Unknown] - As per Instructions
[2017-06-01] MEDS ORDERED: LORazepam 1 MG TAB PO ONE (23:57)
[2017-06-02] MEDS ORDERED: OLANZapine 5 MG TAB PO ONE
[2017-06-02] MEDS ORDERED: ZIPRASIDONE MESYLATE 20 MG VIAL IM ONE ×2 (00:08)
[2017-06-02] MEDS ORDERED: MIDAZOLAM 10 MG/2 ML VIAL IM ONE (00:29)
[2017-06-02 01:00] LABS: PLATELET COUNT 243 10^3/uL (150-400)
[2017-06-02] MEDS ORDERED: IBUPROFEN 800 MG TAB PO ONE (03:48)
[2017-06-02] MEDS ORDERED: OLANZapine DISINTEGR 10 MG TAB ONE (03:50)
[2017-06-02] MEDS ORDERED: OLANZapine DISINTEGR 10 MG TAB PO ONE (03:55)
[2017-06-02] MEDS ORDERED: LORazepam 1 MG TAB PO ONE (13:39)
[2017-06-02 16:20] VITALS: RESP 16; O2SAT 97
[2017-06-02 22:52] VITALS: BP 112/64; PULSE 77; TEMP 98.1
== END 2017-06-02 22:48 ==
LOC: EDUNIT#
DX: F23 Brief psychotic disorder (principal); F17.200 Nicotine dependence, unspecified, uncomplicated
CPT/HCPCS: 96372; 99285; J1200; J3486; 80305; G0480

== ENCOUNTER 2017-10-03 13:55 | Emergency (ER) | payer OTHER, MEDICAID ==
[2017-10-03] MEDS ORDERED: NS 1,000 ML IV ONE (14:09)
[2017-10-03] MEDS ORDERED: HALOPERIDOL LACT 5 MG/ML INJ IM ONE (14:09)
[2017-10-03] MEDS ORDERED: MIDAZOLAM 10 MG/2 ML VIAL IM ONE (14:09)
--- NOTE | 2017-10-03 14:15 | EDPHY ---
H & P Stated Complaint: found going through [place] cars and walking in traffic Source: Patient, Police, EMS - Personal History LMP (Females 10-55): Unknown Current Tetanus/Diphtheria Vaccine: Unsure Current Tetanus Diphtheria and Acellular Pertussis (TDAP): Unsure Tetanus Vaccine Date: 2014 - Medical/Surgical History Hx Asthma: No Hx Chronic Respiratory Disease: No Hx Diabetes: No Hx Cardiac Disease: No Hx Renal Disease: No Hx Cirrhosis: No Hx Alcoholism: No Hx HIV/AIDS: No Hx Splenectomy or Spleen Trauma: No Other PMH: multiple suicide attempts, polysub abuse,depression,paranoid delusions schizophrenia,. cutter - Social History Smoking Status: Current every day smoker Time Seen by Provider: 10/03/17 13:55 HPI/ROS: HPI CHIEF COMPLAINT: Acute psychosis HISTORY OF PRESENT ILLNESS: Patient is a 32-year-old female she presents emergency room by EMS in 4 point restraints with police escort for acute psychosis. They report that she was wandering in and out of traffic screaming. Please in EMS make contact with her she would not give any history and was just screaming incoherently to them. Appear to be acutely psychotic she was brought to the emergency room for further evaluation. Upon arrival to the emergency room the patient is screaming, I am unable to obtain any history review of systems from her. She appears floridly psychotic and is yelling nonsensical verbiage. She requires 4 point restraints upon arrival due to her safety and staff safety. 10 mg IM Haldol as been ordered as well as 5 mg IM Versed. Will placed on full portfolio assistant. Past Medical History: History of borderline personality disorder, polysubstance abuse. Past Surgical History: No recent surgery Social History: Polysubstance abuse Family History: Noncontributory ROS REVIEW OF SYSTEMS: Review of systems limited due to patient's clinical presentation. Exam Constitutional screaming, acutely psychotic, triage nursing summary reviewed, vital signs reviewed, awake/alert. Eyes normal conjunctivae and sclera, EOMI, PERRLA. HENT normal inspection, atraumatic, moist mucus membranes, no epistaxis, neck supple/ no meningismus, no raccoon eyes. Respiratory clear to auscultation bilaterally, normal breath sounds, no respiratory distress, no wheezing. Cardiovascular rate normal, regular rhythm, no murmur, no edema, distal pulses normal. Gastrointestinal soft, non-tender, no rebound, no guarding, normal bowel sounds, no distension, no pulsatile mass. Genitourinary no CVA tenderness. Musculoskeletal no midline vertebral tenderness, full range of motion, no calf swelling, no tenderness of extremities, no meningismus, good pulses, neurovascularly intact. Skin pink, warm, & dry, no rash, skin atraumatic. Neurologic awake, alert and oriented x 3, AAOx3, moves all 4 extremities equally, motor intact, sensory intact, CN II-XII intact, normal cerebellar, normal vision, normal speech. Psychiatric acute psychosis, screaming. Heme/Lymph/Immune no lymphadenopathy. Differential Diagnosis: Includes but is not limited to in a particular order underlying mood disorder, mental illness, acute psychosis, casey, drug intoxication Medical Decision Making: Plan for this patient she requires 4 point restraints upon arrival due to patient's safety as well as staff safety she is acutely psychotic will not follow directions. She requires 4 point restraints. I have ordered her IM Haldol 10 mg IM Versed 5 mg. Will re-evaluate. Full portfolio assistant. Re-evaluation: 173: Patient is now alert and awake. She is sleepy but much more cooperative. Resting comfortably without complaints at this time. Still too sleepy to obtain full history review of systems from. 2100: Patient re-evaluate she is resting comfortably. She still very sleepy from the medications we gave her earlier. She is not suicidal or homicidal. She is not acutely agitated. She is resting comfortably in answers my questions appropriately. However too sleepy to be discharged. Drug screen noted positive for meth, cocaine, marijuana and alcohol. This is contributing to her acute psychotic state earlier. She remains on detain her. I feel that if she rests and is more alert and orient in the morning she be discharged safely. 2100: Patient signed over to Dr. Trammell 9PM shift change. (Edwin Livingston) Constitutional: Initial Vital Signs Heart Rate 130 H 10/03/17 13:55 Respiratory Rate 28 H 10/03/17 13:55 Blood Pressure 127/86 H 10/03/17 13:55 O2 Sat (%) 96 10/03/17 13:55 O2 Delivery Mode Room Air Allergies/Adverse Reactions: No Known Allergies Allergy (Verified 10/07/16 05:47) Home Medications: Medication Instructions Recorded hydrOXYzine HCL 50 mg PO TID PRN #20 tab 04/11/16 Acyclovir [Zovirax 200 mg (*)] 200 mg PO 5XD #50 cap 06/05/16 Ziprasidone HCl [Geodon 40MG (*)] 60 mg PO PRN PRN 06/05/16 Gabapentin [Neurontin 300 MG (*)] 300 mg PO TID PRN #15 cap 08/05/16 Medical Decision Making ED Course/Re-evaluation: 6:44 a.m.- The patient was stable throughout my shift and slept for all of it. She had amphetamines in her urine and was not evaluated by mental health because of this. She will need to be reassessed later this morning to see if she requires mental health evaluation. The case will be signed out to the oncoming provider Dr. Moreau. (Bessie Green) 11:30 a.m. the patient has been evaluated by Mental Health. They feel that she is safe to discharge. She is not on a hold. (Aurelio Moreau) - Data Points Laboratory Results: Laboratory Results 10/03/17 14:29 10/03/17 14:29 Medications Given: Discontinued Medications Haloperidol Lactate (Haldol Injection) 10 mg IM EDNOW ONE Stop: 10/03/17 14:10 Last Admin: 10/03/17 13:57 Dose: 10 mg Sodium Chloride (Ns) 1,000 mls @ 0 mls/hr IV ONCE ONE PRN Reason: Wide Open Stop: 10/03/17 14:10 Last Admin: 10/03/17 14:31 Dose: 1,000 mls Midazolam HCl (Versed) 5 mg IM EDNOW ONE Stop: 10/03/17 14:10 Last Admin: 10/03/17 13:58 Dose: 5 mg Departure - Departure Disposition: Home, Routine, Self-Care Clinical Impression: Polysubstance abuse Condition: Good Instructions: Abuse of Alcohol (ED), Polysubstance Abuse (ED) Referrals: Patient,NotPresent [Unknown] - As per Instructions
[2017-10-03 15:02] LABS: PLATELET COUNT 264 10^3/uL (150-400)
[2017-10-04 11:42] VITALS: BP 128/75
== END 2017-10-04 11:42 | disposition home or self-care (01) ==
LOC: EDUNIT#
DX: F19.10 Other psychoactive substance abuse, uncomplicated (principal); F17.200 Nicotine dependence, unspecified, uncomplicated
CPT/HCPCS: 80305; G0480

== ENCOUNTER 2017-10-08 17:55 | Emergency (ER) | payer OTHER, MEDICAID ==
[2017-10-08] MEDS ORDERED: HALOPERIDOL LACT 5 MG/ML INJ ONE (18:00)
--- NOTE | 2017-10-08 18:02 | EDPHY ---
H & P Time Seen by Provider: 10/08/17 18:02 HPI/ROS: HPI: Chief Complaint: Location: Quality: Duration: Signs and Symptoms: Timing: Severity: Context: Modifying Factors: Comment: ROS: see HPI Constitutional: No fever, no chills, no weight loss Eyes: No blurred vision Respiratory: No shortness of breath, no cough Cardiovascular: No chest pain Gastrointestinal: No nausea, no vomiting, no diarrhea Genitourinary: No dysuria Extremities: No myalgias Neurologic: No weakness, no numbness Skin: No rashes Hematologic: No bruising, no bleeding MEDICAL/SURGICAL/SOCIAL HISTORY: Medical history: Generally healthy. Does not take any regular medications. Surgical history: Denies Social history: Family history noncontributory. CONSTITUTIONAL: awake and alert, no obvious distress HEENT: Atraumatic and normocephalic, PERRL, EOMI. Nares patent; no rhinorrhea; no nasal mucosal edema. Tympanic membranes clear. Oropharynx clear, no exudate and moist pink mucosa. Airway patent. No lymphadenopathy. No meningismus. Cardiovascular: Normal S1/S2, regular rate, regular rhythm, without murmur rub or gallop. PULMONARY/CHEST: Symmetrical and nontender. Clear to auscultation bilaterally. Good air movement. No accessory muscle usage. ABDOMEN: Soft, nondistended, nontender, no rebound, no guarding, no peritoneal signs, no masses or organomegaly. No CVAT. EXTREMITIES: 2/2 pulses, strength 5/5, no deformities, no clubbing, no cyanosis or edema. NEUROLOGICAL: no focal neuro deficits. GCS 15. SKIN: Warm and dry, no erythema. no rash. Good capillary refill. Source: Patient, Police, RN/MD Exam Limitations: Clinical condition - Personal History Tetanus Vaccine Date: 2014 - Medical/Surgical History Hx Asthma: No Hx Chronic Respiratory Disease: No Hx Diabetes: No Hx Cardiac Disease: No Hx Renal Disease: No Hx Cirrhosis: No Hx Alcoholism: No Hx HIV/AIDS: No Hx Splenectomy or Spleen Trauma: No Other PMH: multiple suicide attempts, polysub abuse,depression,paranoid delusions schizophrenia,. cutter - Social History Smoking Status: Current every day smoker Allergies/Adverse Reactions: No Known Allergies Allergy (Verified 10/07/16 05:47) Home Medications: Medication Instructions Recorded hydrOXYzine HCL 50 mg PO TID PRN #20 tab 04/11/16 Acyclovir [Zovirax 200 mg (*)] 200 mg PO 5XD #50 cap 06/05/16 Ziprasidone HCl [Geodon 40MG (*)] 60 mg PO PRN PRN 06/05/16 Gabapentin [Neurontin 300 MG (*)] 300 mg PO TID PRN #15 cap 08/05/16 Departure - Departure Referrals: Patient,NotPresent [Primary Care Provider] - As per Instructions
[2017-10-08] MEDS ORDERED: HALOPERIDOL LACT 5 MG/ML INJ IVP ONE ×3 (18:03→18:34)
[2017-10-08 18:12] LABS: PLATELET COUNT 260 10^3/uL (150-400)
--- NOTE | 2017-10-08 18:18 | EDPHY ---
H & P Smoking Status: Current every day smoker Time Seen by Provider: 10/08/17 18:02 HPI/ROS: HPI Psychotic behavior. 32-year-old female with an extensive psychiatric history and multiple prior visits to our emergency department presents with [employer] police on an M1 hold. She was found initially on the street yelling and screaming. She then wound up in somebody's house yelling and screaming at the owners of the house. At that time she was apprehended by police. They had to restrain her secondary to her hostility and combative behavior. On arrival she is screaming nonsensically. She was given 10 mg of IM Versed and 10 mg of IV Versed and route by EMS without affect. As reported by police she has been noncompliant with her psychiatric medications. ROS: Unable to obtain. Past medical history: Multiple suicide attempts, schizophrenia, poly substance abuse, paranoid delusions, cutter, depression. Social history: Polysubstance abuse. Physical Exam: General Appearance: Alert, very combative, screaming and trying to kick and punch staff. This patient appears well-hydrated and well-nourished. Eyes: Pupils equal and round no pallor or injection. No lid edema, erythema or injection. ENT, Mouth: Mucous membranes are moist. The pharyngeal tissues are unremarkable. No edema or swelling. No asymmetry suggestive of abscess. No erythema or exudates. No tongue lacerations or abrasions. Respiratory: There are no retractions, lungs are clear to auscultation with good air movement bilaterally. Cardiovascular: Regular rate and rhythm. No murmur. Gastrointestinal: Abdomen is soft and nontender, no masses, bowel sounds normal. No focal tenderness at McBurney's point. No Oliveros sign. Neurological: Motor sensory function is grossly intact. Cranial nerves are normal. Skin: Warm and dry, no rashes. Prior scars from cutting on forearms. Abrasions and skin tears to distal ft on the volar surface. Musculoskeletal: Neck is supple and nontender. Extremities are symmetrical. All joints range without pain or impingement. Psychiatric: No agitation. No depression. Database: EKG: Imaging: Right and left two view foot x-rays: No evidence of fracture, subluxation, dislocation or radiopaque foreign body. Interpreted by me. Procedures: Emergency department course: Vital signs reviewed. On my initial evaluation the patient was given 10 mg of IV Haldol. She had to be physically restrained secondary to danger to self and injured others. 6:20 p.m., patient is now sleeping comfortably. Vital signs reviewed and are normal. teletypesetter monitor shows a narrow complex sinus rhythm with ventricular rate of 92. X-rays will be obtained of both feet secondary to multiple abrasion type lacerations to the distal volar aspects. Wound care to follow. 6:35 p.m., patient given an additional 5 mg of IV Haldol secondary to agitation. Her CK is elevated in the 400s. She was started on IV normal saline with 1 L to be given over the next hr and then continued on IV fluids. CK to be repeated. X-rays of her feet obtained to evaluate for possible foreign body verses skeletal trauma. Her foot wounds which appear to be abrasions and blisters were cleansed and irrigated and inspected by myself. Open blisters were debrided. 7:35 p.m., patient re-evaluated. Sleeping comfortably at this time. Vital signs reviewed and are normal. Monitor shows a narrow complex normal sinus rhythm with ventricular rate of 82. Urine drug screen significant for cocaine and marijuana. Serum alcohol was 81. Patient to be evaluated by Behavioral Health when appropriately sober. 10:00 p.m., the patient has been sleeping comfortably. She has had 2 L of IV normal saline. CK will be repeated. 11:00 p.m., repeat CK ordered. Med clearance pending result. She has been sleeping comfortably. Care will be turned over to Dr. Edwin Livingston. Differential Diagnosis: The differential diagnosis on this patient includes but is not limited to acute psychosis, schizophrenia and noncompliance with psychiatric medications, methamphetamine/other sympathomimetic induced psychosis. This represents a partial list of diagnoses considered. These considerations are based on history , physical exam, past history, reassessment and diagnostic testing. ( Rory Palacios) Constitutional: Initial Vital Signs Temperature (C) 36.9 C 10/08/17 17:55 Heart Rate 106 H 10/08/17 17:55 Respiratory Rate 16 10/08/17 17:55 Blood Pressure 118/64 10/08/17 17:55 O2 Sat (%) 97 10/08/17 17:55 O2 Delivery Mode Room Air Allergies/Adverse Reactions: No Known Allergies Allergy (Verified 10/07/16 05:47) Home Medications: Medication Instructions Recorded hydrOXYzine HCL 50 mg PO TID PRN #20 tab 04/11/16 Acyclovir [Zovirax 200 mg (*)] 200 mg PO 5XD #50 cap 06/05/16 Ziprasidone HCl [Geodon 40MG (*)] 60 mg PO PRN PRN 06/05/16 Gabapentin [Neurontin 300 MG (*)] 300 mg PO TID PRN #15 cap 08/05/16 Medical Decision Making ED Course/Re-evaluation: 0700AM: No acute events overnight, on m1 hold. Needs Evaluation. Signed over to Dr. Franco at 7am (Edwin Livingston) - Data Points Laboratory Results: Laboratory Results 10/08/17 18:00 10/08/17 18:00 Medications Given: Discontinued Medications Haloperidol Lactate (Haldol Injection) 10 mg IVP EDNOW ONE Stop: 10/08/17 18:04 Last Admin: 10/08/17 18:02 Dose: 10 mg Haloperidol Lactate (Haldol Injection) 10 mg IVP EDNOW ONE Stop: 10/08/17 18:05 Last Admin: 10/08/17 18:43 Dose: 10 mg Haloperidol Lactate (Haldol Injection) 5 mg IVP EDNOW ONE Stop: 10/08/17 18:35 Last Admin: 10/08/17 18:46 Dose: Not Given Sodium Chloride (Ns) 1,000 mls @ 0 mls/hr IV EDNOW ONE; Wide Open PRN Reason: Protocol Stop: 10/08/17 18:35 Last Admin: 10/08/17 18:46 Dose: 1,000 mls Sodium Chloride (Ns) 1,000 mls @ 0 mls/hr IV EDNOW ONE; Wide Open PRN Reason: Protocol Stop: 10/08/17 18:51 Last Admin: 10/08/17 19:19 Dose: 1,000 mls Departure - Departure Disposition: Home, Routine, Self-Care Clinical Impression: Acute psychosis Depression Qualifiers: Depression Type: other depression Qualified Code(s): F32.89 - Other specified depressive episodes Condition: Good Instructions: Depression (ED) Additional Instructions: Follow up with your psychologist and/or [facility] this week. Return to the ED for any thoughts of self harm or recurrent or worsening symptoms. Referrals: [facility],. [Clinic] - As per Instructions
[2017-10-08 18:24] LABS: CREATINE KINASE 466 IU/L (0-156)
[2017-10-08] MEDS ORDERED: NS 1,000 ML IV ONE ×2 (18:34→18:50)
[2017-10-08 23:41] LABS: CREATINE KINASE 397 IU/L (0-156)
[2017-10-09 13:34] VITALS: BP 119/77
== END 2017-10-09 13:34 | disposition home or self-care (01) ==
LOC: EDUNIT#
DX: F23 Brief psychotic disorder (principal); F32.89 Other specified depressive episodes; E86.9 Volume depletion, unspecified; F17.200 Nicotine dependence, unspecified, uncomplicated
CPT/HCPCS: 73620; 96361; 96374; 96376; 99285; J1630; 80305; G0480

== ENCOUNTER 2017-11-09 16:46 | Emergency (ER) | payer OTHER, MEDICAID ==
[2017-11-09] MEDS ORDERED: NS 1,000 ML IV ONE ×3 (17:08→20:59)
[2017-11-09 17:13] LABS: PLATELET COUNT 308 10^3/uL (150-400)
--- NOTE | 2017-11-09 17:44 | EDPHY ---
H & P Stated Complaint: M1, PER EMS PT HANDCUFFED UPON THEIR ARRIVAL, METH USE Source: RN/, Old records Exam Limitations: Clinical condition - Personal History LMP (Females 10-55): Unknown Current Tetanus Diphtheria and Acellular Pertussis (TDAP): Yes Tetanus Vaccine Date: 2014 - Medical/Surgical History Hx Asthma: No Hx Chronic Respiratory Disease: No Hx Diabetes: No Hx Cardiac Disease: No Hx Renal Disease: No Hx Cirrhosis: No Hx Alcoholism: No Hx HIV/AIDS: No Hx Splenectomy or Spleen Trauma: No Other PMH: multiple suicide attempts, polysub abuse,depression,paranoid delusions schizophrenia,. cutter - Social History Smoking Status: Current every day smoker Time Seen by Provider: 11/09/17 17:39 HPI/ROS: HPI: This is a 32-year-old female who presents with Chief Complaint: M1, PER EMS PT HANDCUFFED UPON THEIR ARRIVAL, METH USE Location: psych Quality: Methamphetamine use Duration: Today Signs and Symptoms: Unable to determine as patient is completely sedated Timing: acute on chronic Severity: Severe Context: Patient has a history of polysubstance abuse primarily methamphetamine use as well as paranoid delusional schizophrenia presents via EMS as the patient's roommate called police earlier in the day. She became concerned as her roommate was breaking things in the room and being around ache after using methamphetamine earlier today. When police arrived patient was resistant and they had to handcuffed for for hers and and there safety. EMS gave 5 mg of IV Versed on route which caused patient to become completely sedated within a few minutes. Chart review shows multiple ER visits for polysubstance abuse and casey and delusions secondary to drug use. Modifying Factors: Versed Comment: ROS: Unable to be obtained secondary to patient's current clinical condition MEDICAL/SURGICAL/SOCIAL HISTORY: Medical history: multiple suicide attempts, polysubstance abuse,depression, paranoid delusions schizophrenia, cutter Social history: Disabled. Family history noncontributory. CONSTITUTIONAL: Patient is completely asleep and snoring loudly with her mouth open, awake and alert, no obvious distress HEENT: Atraumatic and normocephalic, PERRL, EOMI. Nares patent; no rhinorrhea; no nasal mucosal edema. Tympanic membranes clear. Oropharynx clear, poor dentition, dry and cracked lips with dry oral mucosa. Airway patent. No lymphadenopathy. No meningismus. Cardiovascular: Normal S1/S2, regular rate, regular rhythm, without murmur rub or gallop. PULMONARY/CHEST: Symmetrical and nontender. Clear to auscultation bilaterally. Good air movement. No accessory muscle usage. ABDOMEN: Soft, nondistended, superficial scratch noted to her left lower quadrant of abdomen, nontender, no rebound, no guarding, no peritoneal signs, no masses or organomegaly. No CVAT. EXTREMITIES: 2/2 pulses, strength 5/5, no deformities, no clubbing, no cyanosis or edema. NEUROLOGICAL: no focal neuro deficits. GCS 15. SKIN: Warm and dry, ecchymosis noted to her anterior upper thighs as well as bilateral lower extremities in various stages of healing. White nail Spanish noted on fingers that are cracked. no erythema. no rash. Good capillary refill. (Amber Romo) Constitutional: Initial Vital Signs Temperature (C) 36.6 C 11/09/17 16:46 Heart Rate 92 11/09/17 16:46 Respiratory Rate 22 H 11/09/17 16:46 Blood Pressure 113/72 11/09/17 16:46 O2 Sat (%) 97 11/09/17 16:46 O2 Delivery Mode Room Air O2 (L/minute) 2 Allergies/Adverse Reactions: No Known Allergies Allergy (Verified 10/07/16 05:47) Home Medications: Medication Instructions Recorded hydrOXYzine HCL 50 mg PO TID PRN #20 tab 04/11/16 Acyclovir [Zovirax 200 mg (*)] 200 mg PO 5XD #50 cap 06/05/16 Ziprasidone HCl [Geodon 40MG (*)] 60 mg PO PRN PRN 06/05/16 Gabapentin [Neurontin 300 MG (*)] 300 mg PO TID PRN #15 cap 08/05/16 Medical Decision Making ED Course/Re-evaluation: Agree with M1 hold by police as patient is gravely disabled. Patient was placed on shelter monitor and given oxygen 2 L nasal cannula due to moderate sedation secondary to Versed. Given 2 L normal saline. Let topical applied to lips due to complaints of discomfort and then bacitracin. 1600: Labs reviewed and grossly unremarkable. Ethanol 218. Urinalysis pending. 0004: Urine drug screen is positive for cocaine. Patient is medically clear for mental health evaluation. 0100: Signed over to Dr. Livingston pending mental health evaluation and final disposition. This patient was seen under the supervision of my secondary supervising physician. I evaluated care for this patient independently. Discussed this patient with Dr. Baez who did not see the patient. (Amber Romo) 1420: seen by mental health, plan for CSU/ATU admission. (Deb Trammell) I took over care of this patient at 3:00 p.m.. This patient is to be admitted to a psychiatric facility secondary to schizophrenia and methamphetamine abuse. Destination for admission is pending at this time. The patient is on an M1 hold. 7:30 p.m., the patient has been accepted for transfer to [facility]. Accepting psychiatrist is Dr. Beard. I have filled out the appropriate transfer paperwork. The patient's remaining emergency department course under my care has been uneventful. He was transferred in stable condition. (Rory Palacios) Differential Diagnosis: Differential diagnosis includes but is not limited to intoxicated use, head injury, paranoid schizophrenia, delusions, psychosis, casey. (Amber Romo) - Data Points Laboratory Results: Laboratory Results 11/09/17 17:00 11/09/17 17:00 Medications Given: Fluoxetine HCl (Prozac) 20 mg PO DAILY ROLY Stop: 05/09/18 14:44 Last Admin: 11/10/17 15:35 Dose: 20 mg Discontinued Medications Clonazepam (Klonopin) 1 mg PO EDNOW ONE Stop: 11/10/17 14:36 Last Admin: 11/10/17 15:18 Dose: 1 mg Sodium Chloride (Ns) 1,000 mls @ 0 mls/hr IV EDNOW ONE; Wide Open PRN Reason: Protocol Stop: 11/09/17 17:09 Last Admin: 11/09/17 17:32 Dose: 1,000 mls Sodium Chloride (Ns) 1,000 mls @ 0 mls/hr IV EDNOW ONE; Wide Open PRN Reason: Protocol Stop: 11/09/17 17:09 Last Admin: 11/09/17 18:11 Dose: 1,000 mls Sodium Chloride (Ns) 1,000 mls @ 0 mls/hr IV EDNOW ONE; Wide Open PRN Reason: Protocol Stop: 11/09/17 21:00 Last Admin: 11/09/17 21:29 Dose: 1,000 mls Ibuprofen (Motrin) 600 mg PO EDNOW ONE Stop: 11/09/17 21:01 Last Admin: 11/09/17 21:30 Dose: 600 mg Ibuprofen (Motrin) 600 mg PO EDNOW ONE Stop: 11/10/17 13:47 Last Admin: 11/10/17 14:35 Dose: 600 mg Lidocaine (Lidocaine 2% Viscous) 5 ml PO EDNOW ONE Stop: 11/09/17 21:00 Last Admin: 11/09/17 21:30 Dose: 5 ml Lorazepam (Ativan Injection) 1 mg IVP EDNOW ONE Stop: 11/09/17 23:47 Last Admin: 11/10/17 00:24 Dose: 1 mg Olanzapine (Olanzapine) 5 mg PO ONCE ONE Stop: 11/10/17 14:37 Last Admin: 11/10/17 15:19 Dose: 5 mg Propranolol HCl (Inderal) 10 mg PO EDNOW ONE Stop: 11/10/17 14:38 Last Admin: 11/10/17 15:18 Dose: 10 mg Departure - Departure Disposition: Other Psych, Not [facility] Clinical Impression: Cocaine use, Alcohol use Psychosis Qualifiers: Psychosis type: brief psychotic disorder Qualified Code(s): F23 - Brief psychotic disorder
[2017-11-09] MEDS ORDERED: LIDOCAINE 2% VISCOUS 15 ML UDCUP PO ONE (20:59)
[2017-11-09] MEDS ORDERED: IBUPROFEN 600 MG TAB PO ONE (21:00)
[2017-11-09] MEDS ORDERED: LORazepam 2 MG/ML INJ IVP ONE (23:46)
[2017-11-10] MEDS ORDERED: IBUPROFEN 600 MG TAB PO ONE (13:46)
[2017-11-10] MEDS ORDERED: clonazePAM 1 MG TAB PO ONE (14:35)
[2017-11-10] MEDS ORDERED: OLANZapine 5 MG TAB PO ONE (14:36)
[2017-11-10] MEDS ORDERED: PROPRANOLOL HCL 20 MG TAB PO ONE (14:37)
[2017-11-10] MEDS ORDERED: FLUoxetine 20 MG CAP PO SCH (14:45)
[2017-11-10 19:33] VITALS: BP 100/68
== END 2017-11-10 19:34 ==
LOC: EDUNIT#
DX: F23 Brief psychotic disorder (principal); F14.90 Cocaine use, unspecified, uncomplicated; F17.200 Nicotine dependence, unspecified, uncomplicated; E86.9 Volume depletion, unspecified; Z72.89 Other problems related to lifestyle
CPT/HCPCS: 96360; 99285; J2060; 80305; G0480

== ENCOUNTER 2018-01-28 06:50 | Emergency (ER) | payer OTHER, MEDICAID ==
--- NOTE | 2018-01-28 06:44 | EDPHY ---
H & P Time Seen by Provider: 01/28/18 06:49 Medical Decision Making ED Course/Re-evaluation: CHIEF COMPLAINT: HISTORY OF PRESENT ILLNESS: must have 4 elements: Location, Quality, Severity , Duration, Timing, Context, Modifying Factors, Associated Signs and Symptoms REVIEW OF SYSTEMS: A comprehensive 10 system review of systems is otherwise negative aside from elements mentioned in the history of present illness and medical decision making. PHYSICAL EXAM: HR, BP, O2 Sat, RR. Temp noted General Appearance: Alert, well hydrated, appropriate, and non-toxic appearing. Head: Atraumatic without scalp tenderness or obvious injury Eyes: Pupils equal, round, reactive to light and accommodation, EOMI, no trauma , no injection. Ears: Clear bilaterally, no perforation, normal landmarks Nose: Atraumatic, no rhinorrhea, clear. Throat: There is no erythema or exudates, no lesions, normal tonsils, mucus membranes moist. Neck: Supple, 2+ carotid upstroke, nontender, no lymphadenopathy. Respiratory: No retractions, no distress, no wheezes, and no accessory muscle use. Lungs are clear to auscultation bilaterally. Cardiovascular: Regular rate and rhythm, no murmurs, rubs, or gallops. Bilateral carotid, radial, dorsalis pedis, and posterior tibial pulses intact. Good capillary refill all extremities. Gastrointestinal: Abdomen is soft, nontender, non-distended, no masses, no rebound, no guarding, no peritoneal signs. Musculoskeletal: Normal active ROM of all extremities, atraumatic. Neurological: Alert, appropriate, and interactive. The patient has normal DTRs and non-focal cranial nerves, motor, sensory, and cerebellar exam. Skin: No rashes, good turgor, no nodules on palpation. Past medical history: Past surgical history: Family history: Social history: DIAGNOSTICS/PROCEDURES/CRITICAL CARE TIME: DIFFERENTIAL DIAGNOSIS: MEDICAL DECISION MAKING:
--- NOTE | 2018-01-28 06:57 | EDPHY ---
H & P Time Seen by Provider: 01/28/18 06:49 Constitutional: Initial Vital Signs Heart Rate 150 H 01/28/18 07:01 Respiratory Rate 20 01/28/18 07:01 Blood Pressure 144/88 H 01/28/18 07:01 O2 Sat (%) 97 01/28/18 07:01 O2 Delivery Mode Room Air Allergies/Adverse Reactions: Unable to Assess Allergy (Unverified 01/28/18 07:02) Home Medications: Medication Instructions Recorded NK [No Known Home Meds] 01/28/18 Medical Decision Making ED Course/Re-evaluation: CHIEF COMPLAINT: Intoxicated, combative HISTORY OF PRESENT ILLNESS: The patient is an intoxicated 32 y/o female arriving via EMS with [employer] in 4-pt restraints combative and screaming. EMS contacted her naked and screaming at another naked person in the front lawn of an apartment complex near campus. Per EMS, bystander reported she has a psychiatric history and is off medications and used alcohol and marijuana recently. During EMS contact she has been screaming mostly nonsensically and also stating things like "they're going to kill me" and "they're serial killers." EMS administered 2.5mg IM midazolam en route for chemical restraint. Prehospital BGL 165, HR 160. Patient is unable to contribute to history. REVIEW OF SYSTEMS: Unable to obtain. PHYSICAL EXAM: HR, BP, O2 Sat, RR. Temp noted General Appearance: Alert, well hydrated, screaming, combative. Head: Atraumatic without scalp tenderness or obvious injury Eyes: Pupils equal, round, reactive to light and accommodation, EOMI, no trauma , no injection. Nose: Atraumatic, no rhinorrhea, clear. Throat: Mucus membranes moist. Neck: Supple. Respiratory: No retractions, no distress, no wheezes, and no accessory muscle use. Screaming, unable to auscultate. Cardiovascular: Good capillary refill all extremities. Gastrointestinal: Abdomen is soft, nontender, patient uncooperative with exam. Musculoskeletal: Normal active ROM of all extremities, atraumatic. Neurological: Alert, screaming, not following commands. Moving all extremities. Skin: No rashes, good turgor, no nodules on palpation. Past medical history: Schizophrenia; polysubstance abuse including methamphetamine; paranoid delusions; suicide attempts Past surgical history: Noncontributory Family history: Noncontributory Social history: Smoker. Lives in [place]. DIFFERENTIAL DIAGNOSIS: The differential diagnosis for the patient's altered mental status included but was not limited to psychiatric illness off medications, hypoglycemia, infectious process, electrolyte abnormality, head injury, neurologic process, anemia, cardiac process, and intoxicants. MEDICAL DECISION MAKING: This is a 32 y/o female who presents combative, screaming, and nonsensical. No focal neuro deficits or trauma noted, though exam is limited. Plan for IV, labs. 10mg IV Haldol, 25mg IV Benadryl, 2mg IV Ativan ordered for sedation. She is not on an M1. 0940: Patient is asleep on reassessment. 1205: Patient is awake and alert. She is medically clear for [place] [facility] [place] [facility] with [facility]. - Data Points Laboratory Results: Laboratory Results 01/28/18 08:30 01/28/18 08:30 01/28/18 01/28/18 01/28/18 08:30 08:30 08:30 WBC 9.50 10^3/uL 10^3/uL (3.80-9.50) RBC 3.58 10^6/uL L 10^6/uL (4.18-5.33) Hgb 11.4 g/dL L g/dL (12.6-16.3) Hct 34.1 % L % (38.0-47.0) MCV 95.3 fL fL (81.5-99.8) MCH 31.8 pg pg (27.9-34.1) MCHC 33.4 g/dL g/dL (32.4-36.7) RDW 13.0 % % (11.5-15.2) Plt Count 283 10^3/uL 10^3/uL (150-400) MPV 9.2 fL fL (8.7-11.7) Neut % (Auto) 77.5 % H % (39.3-74.2) Lymph % (Auto) 11.8 % L % (15.0-45.0) [place] % (Auto) 10.1 % % (4.5-13.0) Eos % (Auto) 0.0 % L % (0.6-7.6) Baso % (Auto) 0.3 % % (0.3-1.7) Nucleat RBC Rel Count 0.0 % % (0.0-0.2) Absolute Neuts (auto) 7.36 10^3/uL H 10^3/uL (1.70-6.50) Absolute Lymphs (auto) 1.12 10^3/uL 10^3/uL (1.00-3.00) Absolute Monos (auto) 0.96 10^3/uL H 10^3/uL (0.30-0.80) Absolute Eos (auto) 0.00 10^3/uL L 10^3/uL (0.03-0.40) Absolute Basos (auto) 0.03 10^3/uL 10^3/uL (0.02-0.10) Absolute Nucleated RBC 0.00 10^3/uL 10^3/uL (0-0.01) Immature Gran % 0.3 % % (0.0-1.1) Immature Gran # 0.03 10^3/uL 10^3/uL (0.00-0.10) Sodium 144 mEq/L mEq/L (135-145) Potassium 4.0 mEq/L mEq/L (3.3-5.0) Chloride 112 mEq/L H mEq/L (97-110) Carbon Dioxide 22 mEq/l mEq/l (22-31) Anion Gap 10 mEq/L mEq/L (8-16) BUN 10 mg/dL mg/dL (7-23) Creatinine 0.8 mg/dL mg/dL (0.6-1.0) Estimated GFR > 60 Glucose 91 mg/dL mg/dL (70-100) Calcium 8.4 mg/dL L mg/dL (8.5-10.4) Beta HCG, Qual NEGATIVE Salicylates < 1.0 mg/dL L mg/dL (2.0-20.0) Acetaminophen < 10 mcg/mL L mcg/mL (10-30) Ethyl Alcohol 180 mg/dL H mg/dL (0-10) Medications Given: Discontinued Medications Diphenhydramine HCl (Benadryl Injection) 25 mg IM EDNOW ONE Stop: 01/28/18 07:14 Last Admin: 01/28/18 07:15 Dose: 25 mg Haloperidol Lactate (Haldol Injection) 10 mg IM EDNOW ONE Stop: 01/28/18 07:01 Last Admin: 01/28/18 07:04 Dose: 10 mg Haloperidol Lactate (Haldol Injection) 10 mg IM EDNOW ONE Stop: 01/28/18 07:13 Last Admin: 01/28/18 07:15 Dose: 10 mg Lorazepam (Ativan Injection) 2 mg IM EDNOW ONE Stop: 01/28/18 06:59 Last Admin: 01/28/18 07:04 Dose: 2 mg Departure - Departure Disposition: Law Enforcement/Court/[facility] Clinical Impression: Combative behavior Acute alcohol intoxication Qualifiers: Complication of substance-induced condition: with unspecified complication Qualified Code(s): F10.929 - Alcohol use, unspecified with intoxication, unspecified Condition: Good Instructions: Alcohol Intoxication (ED), Abuse of Alcohol (ED) Additional Instructions: Medically clear for [place] [facility]. Follow up with your primary care provider as needed. Avoid abuse of alcohol. Referrals: [facility],. [Clinic] - As per Instructions Report Scribed for: Jose rFanco Report Scribed by: Leana Lovell Date of Report: 01/28/18 Time of Report: 07:02
[2018-01-28] MEDS ORDERED: LORazepam 2 MG/ML INJ IM ONE (06:58)
[2018-01-28] MEDS ORDERED: HALOPERIDOL LACT 5 MG/ML INJ IM ONE ×2 (07:00→07:12)
[2018-01-28 08:49] LABS: PLATELET COUNT 283 10^3/uL (150-400)
[2018-01-28 12:09] VITALS: BP 102/69
== END 2018-01-28 12:29 ==
LOC: EDBD 06:50 → MERGE 06:50
DX: F10.929 Alcohol use, unspecified with intoxication, unspecified (principal); F17.200 Nicotine dependence, unspecified, uncomplicated
CPT/HCPCS: 96372; 99284; J1200; J1630; J2060; G0480

== ENCOUNTER 2018-10-28 21:19 | Emergency (ER) | payer OTHER, MEDICAID | END 2018-10-29 10:43 ==